=== PATIENT | female | born 2000 | race American Indian/Alaskan Native ===

== ENCOUNTER 2021-02-26 13:20 | Emergency (ER) | payer BC ==
--- NOTE | 2021-02-26 15:23 | Emergency Department Report ---
ED General Adult HPI - General Chief complaint: Seizure Stated complaint: SEIZURE Time Seen by Provider: 02/26/21 15:10 Source: patient Mode of arrival: Ambulatory Limitations: No Limitations - History of Present Illness Initial comments: 20-year-old -[place] female patient presents with complaints of lingering post ictal symptoms x5 days. Patient states she has a seizure disorder and takes lamotrigine daily for this. She states she is compliant with her medication. Patient is also currently following with a neurologist. She denies any headache, chest pain, shortness of breath, abdominal pain, urinary symptoms, numbness/tingling/weakness in her limbs, difficulty with speech/ambulation, confusion, or memory loss. She states she just feels fuzzy and drained. She states history of prior post ictal symptoms like this in the past. Patient states she came into the ED today because she was unable to get in with her neurologist. Patient is requesting a note for work and school so she may rest until her post ictal phase is over. She denies any other prior medical history or head trauma - Related Data Allergies Allergy/AdvReac Type Severity Reaction Status Date / Time No Known Allergies Allergy Unverified 02/26/21 13:23 ED Review of Systems ROS: Stated complaint: SEIZURE Other details as noted in HPI Constitutional: malaise. denies: chills, diaphoresis, fever, weakness Eyes: denies: vision change ENT: denies: throat pain, hearing loss Respiratory: denies: cough, shortness of breath Cardiovascular: denies: chest pain Gastrointestinal: denies: abdominal pain, nausea, vomiting Musculoskeletal: denies: back pain Skin: denies: rash, change in color Neurological: denies: headache, weakness, numbness, paresthesias, confusion, abnormal gait Hematological/Lymphatic: denies: swollen glands ED Past Medical Hx - Past Medical History Hx Seizures: Yes - Surgical History Past Surgical History?: No ED Physical Exam - General Limitations: No Limitations General appearance: alert, in no apparent distress - Head Head exam: Present: atraumatic, normocephalic - Eye Eye exam: Present: normal appearance, PERRL, EOMI. Absent: scleral icterus - Neck Neck exam: Present: normal inspection - Respiratory Respiratory exam: Present: normal lung sounds bilaterally. Absent: respiratory distress - Cardiovascular Cardiovascular Exam: Present: regular rate, normal rhythm - Back Exam Back exam: Present: full ROM - Neurological Exam Neurological exam: Present: alert, oriented X3, CN II-XII intact, normal gait. Absent: motor sensory deficit - Expanded Neurological Exam Expanded Cerebellar function: Finger to Nose: Normal, Heel to Martinez: Normal, Romberg: Normal Sensory exam: Upper Extremity Light Touch: Normal, Lower Extremity Light Touch: Normal Motor strength exam: RUE: 4, LUE: 4, RLE: 4, LLE: 4 - Psychiatric Psychiatric exam: Present: normal affect, normal mood - Skin Skin exam: Present: warm, dry, intact, normal color. Absent: rash, cyanosis ED Course Vital Signs 02/26/21 13:28 Temperature 98.6 F Pulse Rate 81 Respiratory 20 Rate Blood Pressure 118/68 O2 Sat by Pulse 95 Oximetry ED Medical Decision Making - Medical Decision Making 20-year-old -[place] female patient presents with complaints of lingering post ictal symptoms x5 days. Patient states she has a seizure disorder and takes lamotrigine daily for this. She states she is compliant with her medication. Patient is also currently following with a neurologist. She denies any headache, chest pain, shortness of breath, abdominal pain, urinary symptoms, numbness/tingling/weakness in her limbs, difficulty with speech/ambulation, confusion, or memory loss. She states she just feels fuzzy and drained. She states history of prior post ictal symptoms like this in the past. Patient states she came into the ED today because she was unable to get in with her neurologist. Patient is requesting a note for work and school so she may rest until her post ictal phase is over. She denies any other prior medical history or head trauma Neuro exam is normal. Upon further questioning, patient states her main reason here in the ED today is for a work and school note because she was not able to get into see her neurologist to get this note. She is well-appearing and her vitals are normal. Patient stable for discharge home. Discussed in detail signs and symptoms that should prompt immediate return to the emergency depart ment with patient who verbalizes understanding. Critical care attestation.: If time is entered above; I have spent that time in minutes in the direct care of this critically ill patient, excluding procedure time. ED Disposition Clinical Impression: Seizure disorder Disposition: HOME / SELF CARE / HOMELESS Is pt being admited?: No Condition: Stable Instructions: Seizure, Adult Additional Instructions: Please follow-up with your neurologist within 5 days Forms: Work/School Release Form(ED)
[2021-02-26 15:34] VITALS: BP 123/66
== END 2021-02-26 15:46 | disposition home or self-care (01) ==
LOC: ED 13:20
DX: G40.909 Epilepsy, unspecified, not intractable, without status epilepticus (principal)
CPT/HCPCS: 99282